=== PATIENT | male | born 1995 | race Caucasian/White ===

== ENCOUNTER 2017-01-18 10:41 | Emergency (ER) | payer SELFPAY ==
--- NOTE | 2017-01-18 11:43 | ER Document Report ---
HPI - HPI Patient complains to provider of: right ankle pain Onset: Yesterday Onset/Duration: Persistent Quality of pain: Achy Severity: Severe Pain Level: 4 - declines pain med Context: Patient presents emergency department with complaints of right ankle pain. Patient reports he was playing baseball yesterday he jumped up to catch a ball came down on his ankle, felt a pop. He reports pain with ambulation. right lateral swelling noted. Denies history of fracture to the ankle. No other c/o such as fever,vomiting,diarrhea. Associated Symptoms: None Exacerbated by: Walking Relieved by: Denies Similar symptoms previously: No Recently seen / treated by doctor: No - DERM Skin Color: Normal Past Medical History - General Information source: Patient - Social History Smoking Status: Unknown if Ever Smoked Cigarette use (# per day): No Frequency of alcohol use: None Drug Abuse: None Occupation: [employer] Family History: None Patient has suicidal ideation: No Patient has homicidal ideation: No - Medical History Medical History: Negative Renal/ Medical History: Denies: Hx Peritoneal Dialysis Surgical Hx: Negative Vertical Provider Document - CONSTITUTIONAL Agree With Documented VS: Yes Exam Limitations: No Limitations General Appearance: WD/WN, No Apparent Distress - INFECTION CONTROL TRAVEL OUTSIDE OF THE [place] IN LAST 30 DAYS: No - HEENT HEENT: Atraumatic, Normocephalic - NECK Neck: Supple - RESPIRATORY Respiratory: Breath Sounds Normal, No Respiratory Distress O2 Sat by Pulse Oximetry: 99 - MUSCULOSKELETAL/EXTREMETIES Musculoskeletal/Extremeties: MAEW, FROM, Tender - right ankle laterally ttp, swelling, good pedal pulse, brisk cap refill - NEURO Level of Consciousness: Awake, Alert, Appropriate Motor/Sensory: No Motor Deficit - DERM Integumentary: Warm, Dry Adult Front & Back Diagram: 1 - tp, swelling Course - Vital Signs Vital signs: Temp Pulse Resp BP Pulse Ox 97.6 F 53 L 16 136/66 H 99 01/18/17 10:46 01/18/17 10:46 01/18/17 10:46 01/18/17 10:46 01/18/17 10:46 - Diagnostic Test Radiology reviewed: Image reviewed, Reports reviewed - Diagnostic report text EXAM DESCRIPTION: ANKLE RIGHT COMPLETE COMPLETED DATE/TIME: 01/18/2017 11:52 am REASON FOR STUDY: 33- ankle pain, swelling, hurt playing baseball COMPARISON: None. NUMBER OF VIEWS: Three views right ankle. LIMITATIONS: None. FINDINGS: Normal bone density. No displaced fracture. Probable joint effusion. Soft tissue swelling laterally. No radiopaque foreign body. OTHER: No other significant finding. TECHNICAL DOCUMENTATION: JOB ID: [id number] RAD/ANKLE RIGHT COMPLETE IMPRESSION: Probable small joint effusion. Soft tissue swelling. No displaced fracture evident Procedures - Immobilization Right Ankle Immobilizer type: Jeromy wrap Performed by: PCT Post-Proc Neuro Vasc Exam: Unchanged from pre-exam Discharge - Discharge Clinical Impression: Elevated blood pressure reading Right ankle pain Qualifiers: Chronicity: acute Qualified Code(s): M25.571 - Pain in right ankle and joints of right foot Ankle joint effusion Qualifiers: Laterality: right Qualified Code(s): M25.471 - Effusion, right ankle Condition: Stable Disposition: HOME, SELF-CARE Instructions: Jeromy Wrap ([facility]), Use of Crutches ([facility]), Ice & Elevation ([facility]), Ibuprofen (General) ([facility]), Sports and your Ankle Additional Instructions: *You have been evaluated for an ankle injury, effusion, elevated blood pressure reading *Rest/Ice/Elevate your ankle *Maintain the jeromy wrap *Use your crutches *Follow up with orthopedics for continued pain-call for an appointment *Take medication as prescribed *Return to ED for worsening condition, changes, needs Monitor your blood pressure. Your blood pressure was elevated today. This may be because you were anxious, in pain or because you need medication. It is important to follow up with your primary care provider for full evaluation. Prescriptions: Ibuprofen [Motrin 800 mg Tablet] 800 mg PO TID #30 tablet Forms: Elevated Blood Pressure
[2017-01-18 12:47] VITALS: BP 122/71
== END 2017-01-18 12:52 | disposition home or self-care (01) ==
LOC: ER 10:41
DX: R03.0 Elevated blood-pressure reading, without diagnosis of hypertension (principal); M25.571 Pain in right ankle and joints of right foot; M25.471 Effusion, right ankle; X58.XXXA Exposure to other specified factors, initial encounter; Y93.64 Activity, baseball
CPT/HCPCS: 99283